=== PATIENT | female | born 1990 | race Caucasian/White ===

== ENCOUNTER → 2024-07-08 14:30 | Outpatient (CLI) | payer OTHER, SELFPAY ==
[2024-07-08 21:58] LABS: Urine N gonorrhoeae NOT DETECTED
[2024-07-08 22:03] LABS: Urine Chlamydia NOT DETECTED
== END ==
PROVIDERS: Visit Provider Obstetrics & Gynecology
DX: Z11.3 Encounter for screening for infections with a predominantly sexual mode of transmission (principal); Z3A.09 9 weeks gestation of pregnancy
CPT/HCPCS: 87491; 87591

== ENCOUNTER → 2024-07-14 09:10 | Outpatient (CLI) | payer OTHER, SELFPAY ==
[2024-07-14 10:13] LABS: Add Manual Diff / Slide Review NO; Basophils Absolute Auto 100 /uL (0-100); Basophils Percent Auto 0.7 % (0-2); Eosinophils Absolute Auto 100 /uL (0-450); Eosinophils Percent Auto 0.6 % (2-4); Hematocrit 41.3 % (36-46); Lymphocytes Absolute Auto 1600 /uL (1100-4500); Lymphocytes Percent Auto 18.5 % (25-40); Mean Corpuscular HGB Conc 33.8 % (30-36); Mean Corpuscular Hemoglobin 30.4 PG (26-34); Mean Corpuscular Volume 89.9 fL (80-100); Monocytes Absolute Auto 500 /uL (0-900); Monocytes Percent Auto 6.1 % (3-14); Neutrophils Absolute Auto 6500 /uL (1500-7000); Neutrophils Percent Auto 74.1 % (50-75); Platelet Count 312 X10^3/uL (150-400); Red Cell Distribution Width 12.9 % (11.6-14.8); White Blood Cell Count 8.7 X10^3/uL (4.5-11.0)
[2024-07-14 10:38] LABS: Natera Collection Specimen Collected
[2024-07-14 10:43] LABS: Hemoglobin A1C% w Est Avg Glu 4.6 % (4.0-6.0)
[2024-07-15 04:41] LABS: RPR Screen Non Reactive (Non Reactive)
[2024-07-15 08:10] LABS: Varicella IgG Antibody Reactive (Non Reactive)
[2024-07-15 22:26] LABS: Hepatitis B Surface Antigen NEGATIVE s/c (NEGATIVE); Rubella Antibody IgG 21.7 IU/mL (>15)
[2024-07-15 22:40] LABS: HIV 1 & 2 Ab/Ag 4th Gen Combo NEGATIVE (NEGATIVE); Hep C Virus Ab w/Reflex Quant NEGATIVE s/c (NEGATIVE)
== END ==
PROVIDERS: Referring Provider Obstetrics & Gynecology; Visit Provider Obstetrics & Gynecology
DX: Z34.81 Encounter for supervision of other normal pregnancy, first trimester (principal); E66.9 Obesity, unspecified; E28.2 Polycystic ovarian syndrome; Z3A.10 10 weeks gestation of pregnancy
CPT/HCPCS: 36415; 80055; 83036; 86787; 86803; 86850; 86900; 86901; 87086; 87389